=== PATIENT | female | born 1975 | race Caucasian/White ===

== ENCOUNTER 2016-08-29 17:09 | Inpatient (IN) | payer BC ==
[2016-08-29] MEDS ORDERED: LORazepam 2 MG/ML SYRINGE IV PRN (17:55)
[2016-08-29] MEDS ORDERED: ONDANSETRON 4 MG/2 ML VIAL IVP PRN (17:55)
[2016-08-29] MEDS ORDERED: NALOXONE 0.4 MG/ML 1 ML VIAL IV PRN (17:55)
[2016-08-29 18:19] VITALS: BMI 46.7
[2016-08-29] MEDS: SODIUM CHLORIDE 0.9% 2,000 ML IV ONE ×2 (18:44→20:14)
[2016-08-29 18:57] LABS: Basophils % (A) 0 %; CH 28.5; CHCM 32.9; Eosinophils # (A) 0.1 k/uL (0-0.7); Eosinophils % (A) 1 %; HCT 39.2 % (34.0-46.0); HDW 2.78; HGB 12.5 gm/dL (11.4-16.0); Luc # (Auto) 0.11; Luc % (Auto) 2; Lymphocytes % (A) 31 %; MCH 27.8 pg (25.0-35.0); MCHC 31.9 g/dL (31.0-37.0); Mean Platelet Volume 7.9; Monocytes # (A) 0.2 k/uL (0-1.0); Monocytes % (A) 4 %; Neutrophils % (A) 63 %; RBC 4.51 m/uL (3.80-5.40); RDW 14.3 % (11.5-15.5); WBC 6.4 k/uL (3.8-10.6); WBC (Perox) 6.79
[2016-08-29 19:07] LABS: ALT 47 U/L (9-52); AST 28 U/L (14-36); Alkaline Phosphatase 90 U/L (38-126); Amylase 37 U/L (30-110); Anion Gap 14 mmol/L; Blood Urea Nitrogen 17 mg/dL (7-17); Calcium 8.9 mg/dL (8.4-10.2); Carbon Dioxide 21 mmol/L (22-30); Chloride 107 mmol/L (98-107); Glucose 95 mg/dL (74-99); Magnesium 2.2 mg/dL (1.6-2.3); Non-African American GFR(MDRD) >60 (>60 ml/min/1.73 sqM); Phosphorous 3.2 mg/dL (2.5-4.5); Potassium 3.7 mmol/L (3.5-5.1); Sodium 142 mmol/L (137-145); Total Bilirubin 1.5 mg/dL (0.2-1.3); Total Protein 7.4 g/dL (6.3-8.2)
[2016-08-30] MEDS: HYDROmorphone 1 MG/ML 1 ML SYRINGE IV PRN (01:35)
[2016-08-30] MEDS: SODIUM CHLORIDE 0.9% 1,000 ML IV SCH ×3 (01:37→19:50)
[2016-08-30 07:18] LABS: Basophils % (A) 0 %; CH 27.8; Eosinophils % (A) 1 %; HCT 36.3 % (34.0-46.0); HDW 2.94; HGB 12.1 gm/dL (11.4-16.0); Luc # (Auto) 0.15; Luc % (Auto) 3; Lymphocytes # (A) 1.6 k/uL (1.0-4.8); Lymphocytes % (A) 36 %; MCH 28.3 pg (25.0-35.0); MCHC 33.4 g/dL (31.0-37.0); MCV 84.7 fL (80.0-100.0); Mean Platelet Volume 7.7; Monocytes # (A) 0.2 k/uL (0-1.0); Monocytes % (A) 5 %; Neutrophils # (A) 2.4 k/uL (1.3-7.7); Neutrophils % (A) 54 %; RBC 4.28 m/uL (3.80-5.40); WBC 4.3 k/uL (3.8-10.6); WBC (Perox) 4.56
[2016-08-30 07:31] LABS: ALT 46 U/L (9-52); AST 23 U/L (14-36); Alkaline Phosphatase 81 U/L (38-126); Anion Gap 9 mmol/L; Blood Urea Nitrogen 9 mg/dL (7-17); Carbon Dioxide 21 mmol/L (22-30); Chloride 109 mmol/L (98-107); Glucose 97 mg/dL (74-99); Magnesium 2.1 mg/dL (1.6-2.3); Non-African American GFR(MDRD) >60 (>60 ml/min/1.73 sqM); Potassium 3.8 mmol/L (3.5-5.1); Sodium 139 mmol/L (137-145); Total Bilirubin 1.5 mg/dL (0.2-1.3); Total Protein 6.3 g/dL (6.3-8.2)
[2016-08-30] MEDS: ENOXAPARIN 40 MG/0.4 ML SYRINGE SQ SCH (09:00)
[2016-08-30] MEDS: LOSARTAN 50 MG TAB PO SCH (20:59)
--- NOTE | 2016-08-30 21:34 | P.PN ---
Progress Note - Text Patient presented to the bariatric Center with acute gastric slippage. Recommend laparoscopic removal of adjustable gastric band.
[2016-08-31] MEDS: SODIUM CHLORIDE 0.9% 1,000 ML IV SCH ×3 (02:00→17:54)
[2016-08-31] MEDS ORDERED: SCOPOLAMINE 1.5MG/72HR PATCH TRANSDERM ONE (05:25)
[2016-08-31] MEDS ORDERED: HYDROmorphone 1 MG/ML 1 ML SYRINGE IVP PRN (05:25)
[2016-08-31] MEDS ORDERED: DEXAMETHASONE SOD PHOSPHATE 10 MG/ML 1 ML VIAL IV ONE (05:25)
[2016-08-31] MEDS ORDERED: ONDANSETRON 4 MG/2 ML VIAL IVP ONE (05:25)
[2016-08-31] MEDS ORDERED: ACETAMINOPHEN IV (For NPO) 1,000 MG in EMPTY BAG 1 BAG IVPB ONE ×2 (08:00→13:45)
[2016-08-31] MEDS ORDERED: ceFAZolin 3 GM in SODIUM CHLORIDE 0.9% 100 ML IVPB ONE (08:00)
[2016-08-31] MEDS: LACTATED RINGERS 1,000 ML IV SCH (08:35)
[2016-08-31] MEDS ORDERED: LIDOCAINE 1% 20 ML VIAL (10MG/ML) FOR IV START INTRADERMA ONE (08:35)
[2016-08-31] MEDS: ENOXAPARIN 40 MG/0.4 ML SYRINGE SQ SCH (09:01)
--- NOTE | 2016-08-31 09:08 | P.GSHP ---
History of Present Illness H&P Date: 08/29/16 CHIEF COMPLAINT: Abdominal pain with intractable nausea and vomiting with history of an adjustable gastric band HISTORY OF PRESENT ILLNESS: The patient is a 40-year-old female with previous history of adjustable gastric band several years ago. She reports this morning having intractable nausea and vomiting including dysphagia. She presented to the bariatric center. All fluid was discontinued from her band. She had an upper GI demonstrating acute slippage of her adjustable gastric band. She still reported abdominal pain. Patient was admitted as a result to undergo urgent laparoscopic band removal. PAST MEDICAL HISTORY: Please see list. PAST SURGICAL HISTORY: Please see list. MEDICATIONS: Please see list. ALLERGIES: Please see list. SOCIAL HISTORY: No illicit drug use FAMILY HISTORY: No reports of Crohn disease or ulcerative colitis. REVIEW OF ORGAN SYSTEMS: CONSTITUTIONAL: Denies any fever or chills. No significant weight loss from adjustable gastric band. HEENT: Denies any trouble with vision, hearing or nosebleeds. No difficulty swallowing. LYMPHATIC: The patient denies any lumps and bumps around the neck. ENDOCRINE: Denies any thyroid disorders. Denies any blood sugar glucose intolerance. RESPIRATORY: Denies pneumonia. Denies any troubles with breathing or dyspnea on exertion. CARDIOVASCULAR: Denies any chest pain, palpitations, or recent heart attacks. GASTROINTESTINAL: The onset heartburn with intractable nausea and vomiting. GENITOURINARY: Denies any blood in urine or increased urinary frequency. MUSCULOSKELETAL: Has back pain, stiffness, joint arthritis. NEUROLOGIC: Denies any numbness or tingling along the distal extremities. No seizure disorders or headaches. PSYCHIATRIC: Denies depression or suidical ideation. HEMATOLOGIC: Denies any abnormal bleeding or bruising. BREASTS: Denies any breast lumps, pain or nipple discharge. PHYSICAL EXAM: VITAL SIGNS: Stable GENERAL: Well-developed and in mild distress. HEENT: No scleral icterus. Extraocular movements grossly intact. Moist buccal mucosa. NECK: Supple without lymphadenopathy. CHEST: Unlabored respirations. Equal bilateral excursions. CARDIOVASCULAR: Regular rate and rhythm. Distal 2+ pulses. ABDOMEN: Protuberant, soft, tenderness along the epigastrium. MUSCULOSKELETAL: No clubbing, cyanosis, or edema. ASSESSMENT: 1. Acute gastric band slippage. 2. Intractable nausea and vomiting. 3. Epigastric abdominal pain. 4. Dehydration. 5. Morbid obesity due to excess calories. 6. BMI 46.7. PLAN: 1. Immediate admission anticipated inpatient hospitalization over 2 nights. 2. DVT prophylaxis. 3. Antibiotic prophylaxis. 4. Laparoscopic removal of adjustable gastric band and all components were described. 5. IV fluid hydration. Past Medical History Past Medical History: Hypertension History of Any Multi-Drug Resistant Organisms: None Reported Past Surgical History: Bariatric Surgery, Section, Cholecystectomy Additional Past Surgical History / Comment(s): lap band Past Anesthesia/Blood Transfusion Reactions: No Reported Reaction Past Psychological History: No Psychological Hx Reported Smoking Status: Never smoker Additional Past Alcohol Use History / Comment(s): Occational, 1-2/ week Medications and Allergies Home Medications Medication Instructions Recorded Confirmed Type Losartan Potassium [Cozaar] 100 mg PO HS 08/29/16 08/29/16 History Multivitamins, Thera [Multivitamin 1 tab PO DAILY 08/29/16 08/29/16 History (formulary)] Allergies Allergy/AdvReac Type Severity Reaction Status Date / Time naproxen [From Aleve] Allergy Swelling Verified 08/29/16 18:15 Surgical - Exam Vital Signs Temp Pulse Resp BP Pulse Ox 98.4 F 92 16 143/98 97 08/29/16 17:33 08/29/16 17:33 08/29/16 17:33 08/29/16 17:33 08/29/16 17:33 Results - Labs 08/30/16 06:39 08/30/16 06:39 Abnormal Lab Results - Last 24 Hours (Table) 08/30/16 Range/Units 06:39 Chloride 109 H (98-107) mmol/L Carbon Dioxide 21 L (22-30) mmol/L Creatinine 0.50 L (0.52-1.04) mg/dL Calcium 8.0 L (8.4-10.2) mg/dL Total Bilirubin 1.5 H (0.2-1.3) mg/dL Albumin 3.3 L (3.5-5.0) g/dL Diabetes panel 08/30/16 Range/Units 06:39 Sodium 139 (137-145) mmol/L Potassium 3.8 (3.5-5.1) mmol/L Chloride 109 H (98-107) mmol/L Carbon Dioxide 21 L (22-30) mmol/L BUN 9 (7-17) mg/dL Creatinine 0.50 L (0.52-1.04) mg/dL Glucose 97 (74-99) mg/dL Calcium 8.0 L (8.4-10.2) mg/dL AST 23 (14-36) U/L ALT 46 (9-52) U/L Alkaline Phosphatase 81 (38-126) U/L Total Protein 6.3 (6.3-8.2) g/dL Albumin 3.3 L (3.5-5.0) g/dL Calcium panel 08/30/16 Range/Units 06:39 Calcium 8.0 L (8.4-10.2) mg/dL Phosphorus 3.0 (2.5-4.5) mg/dL Albumin 3.3 L (3.5-5.0) g/dL Pituitary panel 08/30/16 Range/Units 06:39 Sodium 139 (137-145) mmol/L Potassium 3.8 (3.5-5.1) mmol/L Chloride 109 H (98-107) mmol/L Carbon Dioxide 21 L (22-30) mmol/L BUN 9 (7-17) mg/dL Creatinine 0.50 L (0.52-1.04) mg/dL Glucose 97 (74-99) mg/dL Calcium 8.0 L (8.4-10.2) mg/dL Adrenal panel 08/30/16 Range/Units 06:39 Sodium 139 (137-145) mmol/L Potassium 3.8 (3.5-5.1) mmol/L Chloride 109 H (98-107) mmol/L Carbon Dioxide 21 L (22-30) mmol/L BUN 9 (7-17) mg/dL Creatinine 0.50 L (0.52-1.04) mg/dL Glucose 97 (74-99) mg/dL Calcium 8.0 L (8.4-10.2) mg/dL Total Bilirubin 1.5 H (0.2-1.3) mg/dL AST 23 (14-36) U/L ALT 46 (9-52) U/L Alkaline Phosphatase 81 (38-126) U/L Total Protein 6.3 (6.3-8.2) g/dL Albumin 3.3 L (3.5-5.0) g/dL
--- NOTE | 2016-08-31 09:09 | P.PN ---
Progress Note - Text Patient seen and evaluated. She still complains of epigastric abdominal pain and difficulty with swallowing. We'll proceed with removal of adjustable gastric band and all components.
--- NOTE | 2016-08-31 09:10 | P.HPADDEND ---
H&P Addendum H&P Addendum Date: 08/31/16 Patient still complains of epigastric abdominal pain with difficulty swallowing. We'll proceed with removal of adjustable gastric band and all components.
[2016-08-31] MEDS ORDERED: PROPOFOL 10 MG/ML 20 ML VIAL IV ONE (11:49)
[2016-08-31] MEDS ORDERED: ROCURONIUM BROMIDE 10 MG/ML 10 ML VIAL IV ONE (11:49)
[2016-08-31] MEDS ORDERED: fentaNYL (PF) 50 MCG/ML 2 ML AMP ONE (11:49)
[2016-08-31] MEDS ORDERED: SUCCINYLCHOLINE CHLORIDE 100 MG/5 ML SYR IV ONE (11:49)
[2016-08-31] MEDS ORDERED: NEOSTIGMINE 1 MG/ML 10 ML VIAL ONE (11:49)
[2016-08-31] MEDS ORDERED: HYDROmorphone (PF) 1 MG/ML ONE (11:49)
[2016-08-31] MEDS ORDERED: MIDAZOLAM 2 MG/2 ML VIAL ONE (11:49)
[2016-08-31] MEDS ORDERED: GLYCOPYRROLATE 0.2 MG/ML 2 ML VIAL ONE (11:49)
[2016-08-31] MEDS ORDERED: LIDOCAINE 1% INJ 10MG/ML (20 ML MDV) ONE (11:49)
[2016-08-31] MEDS ORDERED: PHENYLEPHRINE-0.9% NACL SYG 1 MG/10 ML SYRINGE ONE (11:49)
[2016-08-31] MEDS ORDERED: BUPIVACAIN-EPI 0.5%-1:200,000 30 ML VIAL SQ ONE ×2 (12:28)
[2016-08-31] MEDS ORDERED: LACTATED RINGERS 1,000 ML IV ONE (12:46)
[2016-08-31] MEDS ORDERED: HYDROcodone/APAP 5-325MG 1 EACH TAB PO PRN (13:26)
--- NOTE | 2016-08-31 13:26 | P.PCN ---
Date of Procedure: 08/31/16 Preoperative Diagnosis: Acute gastric band slippage, intractable nausea and vomiting, epigastric abdominal pain, morbid obesity, BMI 46.7 Postoperative Diagnosis: Same Procedure(s) Performed: Laparoscopic removal adjustable gastric band and all components, intraoperative esophagogastro duodenoscopy Implants: Anesthesia: GETA, local (60) Surgeon: Shabana Costa Estimated Blood Loss (ml): 20 Pathology: other (Gastric band including port and all components) Condition: stable Disposition: floor Indications for Procedure: Operative Findings: 1. Acute gastric slippage of adjustable gastric band. 2. No full-thickness gastrotomy identified. 3. Moderate bile over 500 mL aspirated from the stomach. 4. Shelly drain placed along deep subcutaneous tissue port site. Description of Procedure:
[2016-08-31] MEDS ORDERED: SCOPOLAMINE 1.5MG/72HR PATCH TRANSDERM STA (17:24)
--- NOTE | 2016-08-31 17:24 | P.PN ---
Progress Note - Text Patient reports still chest pressure especially as she had drank through a straw. She reports nausea. Recommend overnight observation including antispasmodic for her esophagus. Patient may be discharged home in the morning. Follow-up with the bariatric center in 48 to 72 hours.
[2016-08-31] MEDS ORDERED: DEXAMETHASONE SOD PHOSPHATE 10 MG/ML 1 ML VIAL IV STA (17:25)
[2016-08-31] MEDS: HYOSCYAMINE ORAL DROPS 1.875 MG/15 ML BOTTLE PO SCH ×2 (17:54→21:02)
[2016-08-31] MEDS: SIMETHICONE 40 MG/0.6 ML DROPS 2,000 MG/30 ML BOTTLE PO SCH ×2 (17:55→23:01)
[2016-08-31] MEDS: LOSARTAN 50 MG TAB PO SCH (21:03)
[2016-08-31] MEDS: HYDROmorphone 1 MG/ML 1 ML SYRINGE IV PRN (21:04)
[2016-09-01] MEDS: HYOSCYAMINE ORAL DROPS 1.875 MG/15 ML BOTTLE PO SCH ×3 (01:07→09:04)
[2016-09-01] MEDS: SODIUM CHLORIDE 0.9% 1,000 ML IV SCH (04:13)
[2016-09-01] MEDS: LACTATED RINGERS 1,000 ML IV SCH (05:25)
[2016-09-01 08:06] VITALS: BP 118/67; PULSE 62; RESP 14; TEMP 96.9
[2016-09-01] MEDS: ENOXAPARIN 40 MG/0.4 ML SYRINGE SQ SCH (09:03)
[2016-09-01] MEDS: SIMETHICONE 40 MG/0.6 ML DROPS 2,000 MG/30 ML BOTTLE PO SCH (09:04)
--- NOTE | 2016-09-10 09:38 | P.PN ---
Subjective Principal diagnosis: Abdominal pain The patient is a 40-year-old female who presents with acute abdominal pain including intractable nausea and vomiting. Diagnostic studies are consistent with acute gastric slippage of her gastric band. Despite removal of fluid from her band, she still complains of abdominal pain. Objective - Vital Signs Vital signs: Vital Signs Temp 98.0 F 08/30/16 20:42 Pulse 80 08/30/16 20:42 Resp 16 08/30/16 20:42 BP 146/84 08/30/16 20:42 Pulse Ox 95 08/30/16 20:42 Intake & Output 08/30/16 08/30/16 08/31/16 06:59 18:59 06:59 Intake Total 2800 900 Balance 2800 900 Weight 123.377 kg Intake: Intake, IV Titration 2800 500 Amount Sodium Chloride 0.9% 1, 800 500 000 ml @ 100 mls/hr IV . Q10H SHALINI Rx#:[id number] Sodium Chloride 0.9% 2, 2000 000 ml @ 999 mls/hr IV . Q2H1M ONE Rx#:[id number] Oral 400 Other: # Voids 1 3 - Exam GENERAL: Well developed and in no acute distress. HEENT: No sclera icterus. Extraocular movements grossly intact. Moist buccal mucosa. Head is atraumatic, normocephalic. Hears conversational speech. No nasal drainage. NECK: Supple without lymphadenopathy. No JV distention. CHEST: Non-labored respirations and equal bilateral excursions. CARDIOVASCULAR: Regular rate and rhythm. Palpable 2+ radial pulses. ABDOMEN: Soft. Nondistended. Mild tenderness along the epigastrium. No peritoneal signs. MUSCULOSKELETAL: No clubbing, cyanosis or edema. NEUROLOGIC: No focal or lateralizing signs. PSYCH: Appropriate affect. Alert and oriented to person, place and time. - Labs CBC & Chem 7: 08/30/16 06:39 08/30/16 06:39 Labs: Abnormal Lab Results - Last 24 Hours (Table) 08/30/16 Range/Units 06:39 Chloride 109 H (98-107) mmol/L Carbon Dioxide 21 L (22-30) mmol/L Creatinine 0.50 L (0.52-1.04) mg/dL Calcium 8.0 L (8.4-10.2) mg/dL Total Bilirubin 1.5 H (0.2-1.3) mg/dL Albumin 3.3 L (3.5-5.0) g/dL Assessment and Plan (1) Morbid obesity due to excess calories Status: Acute (2) Body mass index (BMI) of 45.0 to 49.9 in adult Status: Acute (3) History of bariatric surgery Status: Acute (4) Other complications of gastric band procedure Status: Acute (5) Hypertension Status: Acute (6) Intractable nausea and vomiting Status: Acute (7) Epigastric abdominal pain Status: Acute (8) Gastric band slippage Status: Acute Plan: 1. She still reports abdominal pain. We'll continue with IV fluid hydration. 2. Recommend liquids only. 3. GI Prophylaxis. 4. DVT prophyaxis. 5. Will proceed with removal of adjustable gastric band and all components.
--- NOTE | 2016-09-10 09:56 | P.OP ---
Date of Procedure: 08/31/16 Preoperative Diagnosis: Postoperative Diagnosis: Procedure(s) Performed: Implants: Indications for Procedure: Operative Findings: Description of Procedure: SURGEON: MARIA DEL CARMEN STEVEN MD PANEL MAKER: NONE. PREOPERATIVE DIAGNOSES: 1. Morbid obesity due to excess calories. 2. Body mass index 46.7. 3. Complications of adjustable gastric band. 4. Epigastric abdominal pain. 5. essential hypertension. 6. Gastroesophageal reflux disease. 7. Dysphagia due to solid foods. 8. Nausea and vomiting. 9. Dehydration. 10. Acute gastric band slippage. POSTOPERATIVE DIAGNOSES: PREOPERATIVE DIAGNOSES: 1. Morbid obesity due to excess calories. 2. Body mass index 46.7. 3. Complications of adjustable gastric band. 4. Epigastric abdominal pain. 5. essential hypertension. 6. Gastroesophageal reflux disease. 7. Dysphagia due to solid foods. 8. Nausea and vomiting. 9. Dehydration. 10. Acute gastric band slippage. OPERATION: 1. Laparoscopic removal of adjustable gastric band and all components. 2. Intraoperative esophagogastroduodenoscopy. ANESTHESIA: General with 60 mL 0.25% Sensorcaine with epinephrine. ESTIMATED BLOOD LOSS: 20 mL SPECIMENS REMOVED: Adjustable gastric band and components, including fibrotic tissue. COMPLICATIONS: None. FINDINGS: 1. Acute gastric slippage of adjustable gastric band. 2. No full-thickness gastrotomy identified. 3. Moderate bile over 500 mL aspirated from the stomach. 4. Friendship drain placed along deep subcutaneous tissue port site. INDICATIONS: The patient is a 40-year-old female who presents with prior history of adjustable gastric band. She presented with acute intractable nausea and vomiting including epigastric abdominal pain and dysphagia to solid foods. Despite removal of fluid from her band, she had persistent symptoms. Surgical options were described. As she has persistent pain and discomfort from her band, removal of the adjustable gastric band and port including all components were reviewed. Benefits and risks of the procedure were described. Informed consent was obtained. DESCRIPTION: The patient was brought into the operating room and laid in supine position. Chemical DVT prophylaxis were given as well as bilateral SCDs. Patient was brought into the operating room, transferred a split-leg table. After general induction, which was uncomplicated, the abdomen was prepped and draped in standard sterile fashion. The abdomen was prepped and draped in standard sterile fashion using ChloraPrep as well as Ioban draping. Prior to incision, a timeout protocol was confirmed with the surgical team regarding patient's name, procedure to be performed, including preoperative medications. A transverse incision was made approximately 15 cm distal to the xiphoid off to the left of the midline. A 0 degree 5 mm trocar entry was performed and entered into the peritoneal cavity. The abdomen was insufflated to 15 mmHg pressure, which she tolerated well. Diagnostic laparoscopy demonstrated no hepatomegaly or fatty liver disease. The port was palpated at the lateral left costal margin and the band was found underneath the liver. A 15 mm port was placed along the left costal margin. Next a 5 mm port was placed at the left midclavicular line. The patient was placed in steep reverse Trendelenburg position. The port was followed with its tubing to the actual band. The gastrohepatic ligament was actually scarred from her prior surgery. Acute gastric slippage of her ALLERGAN band was confirmed. Using electro-Bovie cautery, the cicatrix of the band was incised. The band was then freed. The band buckle was cut. The tubing was cut approximately 5 cm distal to the actual adapter. The band was removed in two pieces without injury to the stomach. Hemostasis was excellent. The band was removed from the abdominal cavity via the 15 mm port. Next, attention was brought to the abdominal wall where the lap band port was palpated. Skin was localized with anesthetic. A transverse incision was made over the port using a #11 blade. Electro-Boviecautery was used to enter the capsule around the port. The sutures were cut and the port was removed in total along with the tubing. Diagnostic laparoscopy demonstrated complete removal of all foreign body. I then went to the head of the bed to perform intraoperative esophagogastroduodenoscopy to evaluate for any full thickness injury to the stomach. An Olympus gastroscope was passed from the posterior oropharynx down to the esophagus, where the squamocolumnar junction was found LA grade B erosive esophagitis, chronic changes. The stomach was entered and moderate bile reflux was found. Over 500 mL of bile was suctioned from the stomach. Chronic gastritis was found along the antrum without gastric ulcers or duodenitis or duodenal ulcers. Retroflexion of the scope confirmed a Hill grade 2 lower esophageal valve. No full-thickness erosion from the prior band was encountered. No blood was found within the stomach. The stomach was desufflated. The patient tolerated the procedure well. Again, no evidence of leak was encountered from the removal of the band. Along the left upper quadrant 15 mm port site, Kendall Humphrey 0 Vicryl sutures were used to close the fascia. I then went back to the patient's bedside after re-scrubbing. All instruments and pneumoperitoneum were evacuated from the abdominal cavity. The port extraction site was hemostatic. The port site was irrigated using normal saline and hydrogen peroxide approximately, 50 mL. The skin was closed in layers using 0-Vicryl for the deep dermis and subcutaneous tissue. A Friendship drain, quarter inch was placed in the subcutaneous tissue to minimize risks of postoperative seroma.The rest of the incisions were reapproximated using 4-0 Monocryl in a subcuticular interrupted fashion. Optifoam dressing was placed over the port extraction site and along the left upper quadrant to decrease risk for surgical site infection. At the end of the procedure, needle, sponge and instrument count was verified correct by the surgical services tech. The patient had tolerated the procedure well. An abdominal binder was placed. The patient was transferred to Postanesthesia Care Unit in stable condition. Postoperative findings were discussed with the patient's family who were pleased with the level of care.
--- NOTE | 2016-09-10 10:00 | P.DS ---
Providers Date of admission: 08/29/16 17:13 Expected date of discharge: 09/01/16 Attending physician: Shabana Costa Primary care physician: Stated None - Discharge Diagnosis(es) (1) Morbid obesity due to excess calories Status: Acute (2) Body mass index (BMI) of 45.0 to 49.9 in adult Status: Acute (3) History of bariatric surgery Status: Acute (4) Other complications of gastric band procedure Status: Acute (5) Hypertension Status: Acute (6) Intractable nausea and vomiting Status: Acute (7) Epigastric abdominal pain Status: Acute (8) Gastric band slippage Status: Acute Hospital Course: The patient is a 40-year-old female who emergently presented to the bariatric center with intractable nausea and vomiting including epigastric abdominal pain and dysphagia. Despite fluid removed from her band, she had persistent symptoms. She was admitted. After IV fluid hydration the patient was brought to the operating room where her adjustable gastric band and all components were removed. Postoperatively, she still complained of mild dysphagia and abdominal pain. Prior to discharge, she was tolerating diet. Her abdominal pain had resolved. Procedures: Laparoscopic removal of adjustable gastric band and all components with intraoperative esophagogastroduodenoscopy, 08/31/16. Patient Condition at Discharge: Stable Plan - Discharge Summary New Discharge Prescriptions: New Ondansetron Odt [Zofran ODT] 4 mg PO Q8HR PRN #10 tab PRN Reason: Nausea And Vomiting Hydrocodone/Acetaminophen [[place] 5-325] 1 - 2 each PO Q6HR PRN #20 tab PRN Reason: Pain Hyoscyamine Oral Drops [Levsin Drops] 0.25 mg PO Q4HR bottle Simethicone 40 mg/0.6 ml Drops [Mylicon Drops] 40 mg PO QID bottle No Action Multivitamins, Thera [Multivitamin (formulary)] 1 tab PO DAILY Losartan Potassium [Cozaar] 100 mg PO HS Discharge Medication List Losartan Potassium [Cozaar] 100 mg PO HS 08/29/16 [History] Multivitamins, Thera [Multivitamin (formulary)] 1 tab PO DAILY 08/29/16 [History ] Hydrocodone/Acetaminophen [[place] 5-325] 1 - 2 each PO Q6HR PRN #20 tab 08/31/16 [Rx] Hyoscyamine Oral Drops [Levsin Drops] 0.25 mg PO Q4HR bottle 08/31/16 [Rx] Ondansetron Odt [Zofran ODT] 4 mg PO Q8HR PRN #10 tab 08/31/16 [Rx] Simethicone 40 mg/0.6 ml Drops [Mylicon Drops] 40 mg PO QID bottle 08/31/16 [Rx ] Follow up Appointment(s)/Referral(s): Shabana Costa MD [STAFF PHYSICIAN] - 09/03/16 4:00 pm (Bariatric center at 4 pm) Patient Instructions/Handouts: Exploratory Laparoscopy (DC), Abdominal Binder ( DC) Activity/Diet/Wound Care/Special Instructions: No lifting over 4 pounds in 4 weeks. May shower. No bath tub soaks. Wear abdominal binder on in all times after showering. Dressing to be discontinued in the office. Discharge Disposition: HOME SELF-CARE
== END 2016-09-01 09:30 | disposition home or self-care (01) | DRG 988 ==
LOC: 3SUR 17:13
PROVIDERS: ADMIT Surgery Plastic and Reconstructive Surgery; ATTEND Surgery Plastic and Reconstructive Surgery
PROC: 0DJ08ZZ Inspection of Upper Intestinal Tract, Via Natural or Artificial Opening Endoscopic (ICD-10-PCS; 2016-08-31)
PROC: 0JPT3WZ Removal of Totally Implantable Vascular Access Device from Trunk Subcutaneous Tissue and Fascia, Percutaneous Approach (ICD-10-PCS; 2016-08-31)
PROC: 0DP64CZ Removal of Extraluminal Device from Stomach, Percutaneous Endoscopic Approach (ICD-10-PCS; principal; 2016-08-31 10:05)
DX: T85.598A Other mechanical complication of other gastrointestinal prosthetic devices, implants and grafts, initial encounter (principal); K95.09 Other complications of gastric band procedure; Z68.42 Body mass index [BMI] 45.0-49.9, adult; E66.01 Morbid (severe) obesity due to excess calories; K22.10 Ulcer of esophagus without bleeding; R13.19 Other dysphagia; I10 Essential (primary) hypertension; K21.9 Gastro-esophageal reflux disease without esophagitis; K29.50 Unspecified chronic gastritis without bleeding; K66.0 Peritoneal adhesions (postprocedural) (postinfection); E86.0 Dehydration; R10.13 Epigastric pain; R07.89 Other chest pain; R11.2 Nausea with vomiting, unspecified; Z88.6 Allergy status to analgesic agent; Z90.49 Acquired absence of other specified parts of digestive tract; Z79.899 Other long term (current) drug therapy; Z98.84 Bariatric surgery status; Y83.1 Surgical operation with implant of artificial internal device as the cause of abnormal reaction of the patient, or of later complication, without mention of misadventure at the time of the procedure
CPT/HCPCS: 80053; 81025; 82150; 83690; 83735; 84100; 85025; 93005

== ENCOUNTER → 2016-08-29 | Outpatient (CLI) | payer BC ==
[2016-08-29 15:23] VITALS: BP 148/105; PULSE 80; RESP 16; TEMP 98.3; BMI 46.8
--- NOTE | 2016-08-30 07:34 | FL ---
EXAMINATION TYPE: FL barium swallow DATE OF EXAM: 08/29/2016 LAP BANDING LIMITED ESOPHAGRAM: CLINICAL HISTORY: Lap band placed 10 years ago with severe dysphasia and inability to eat for one da y, had fill removed earlier today. TECHNIQUE: Limited esophagram is performed utilizing 30 oz of Omnipaque. A total of 37 seconds of fl uoroscopic time was utilized during procedure. COMPARISON: None. FINDINGS: Pre-procedure wool shearer image shows lap band in close proximity to the left hemidiaphragm in proximal stomach just below the gastroesophageal junction. Slightly more vertical angulation is pres ent but the phi angle remains within normal limits . Numerous cholecystectomy clips are seen. The pat ient then drank oral contrast. There is good flow of contrast along the course of the esophagus. The re is mild delay in flow of contrast along the course of the lap band, there is no evidence of contra st extravasation to suggest leak. Patient remains asymptomatic. IMPRESSION: No evidence of lap band slippage or significant obstruction after fill removed.
--- NOTE | 2016-09-12 13:49 | P.PN ---
Progress Note - Text DATE OF CONSULTATION: 08/29/16 REASON FOR CONSULTATION: Complications from gastric band with acute dysphagia. HISTORY OF PRESENT ILLNESS: The patient is a 40-year-old female who presents with a long-standing history of morbid obesity. She had an adjustable gastric band placed 8 years ago, 2008. She admits to poor follow-up since her band placement. She reports walking up this morning and tried to eat. She reports acute pain and troubles with swallowing. She tried drinking water with worsening symptoms. She reports acute epigastric abdominal pain. No reports of previous episodes. She reports this her first trouble with her band. She reports acute nausea and vomiting and inability to maintain any oral intake. Now she presents for evaluation. At her height of 5 foot 4, her ideal body weight is 144 pounds. Today she comes in at 273 pounds. Her highest weight was 280 pounds. Her lowest weight with the band was 235 pounds. She initially lost 45 pounds. She has already regained 38 pounds. She is 129 pounds overweight. PAST MEDICAL HISTORY: 1. Morbid obesity. 2. Hypertension. PAST SURGICAL HISTORY: 1. Adjustable gastric band placement, 2008. 2. Cholecystectomy. 3. . HOME MEDICATIONS: 1. Cozaar. ALLERGIES: Naproxen. SOCIAL HISTORY: No active tobacco use. FAMILY HISTORY: Denies any DVTs, pulmonary embolisms in her family. Denies any ulcerative colitis disease or Crohn's. She does have a family history of morbid obesity. REVIEW OF ORGAN SYSTEMS: CONSTITUTIONAL: At her height of 5 foot 4, her ideal body weight is 144 pounds. Today she comes in at 273 pounds. Her highest weight was 280 pounds. Her lowest weight with the band was 235 pounds. She initially lost 45 pounds. She has already regained 38 pounds. She is 129 pounds overweight. HEENT: Denies any active troubles with vision or hearing. Presents with acute dysphagia. ENDOCRINE: No reports of diabetes or hypothyroidism. CARDIOVASCULAR: No reports of palpitations or heart attacks or chest pain. Has hypertension controlled with 1 blood pressure medication. RESPIRATORY: Has daytime somnolence including snoring, suspicious for sleep apnea. No recent asthma. GI: Denies any bright red blood per rectum, diarrhea or constipation. Has intermittent heartburn. MUSCULOSKELETAL: Describes generalized muscle aches, including lower back pain or joint pain. NEURO: There were no reports of headaches or seizure disorders. PSYCH: Has depression without suicidal ideation. Has anxiety. HEMATOLOGIC: Denies any abnormal bleeding or bruising. PHYSICAL EXAM: VITAL SIGNS: height 5 foot 4 inches, weight 273 pounds. BMI 46.9 Vital Signs Temp 98.3 F 08/29/16 15:10 Pulse 80 08/29/16 15:10 Resp 16 08/29/16 15:10 BP 148/105 08/29/16 15:10 Pulse Ox GENERAL: Well-developed female in mild distress. HEENT: No scleral icterus. Extraocular was grossly intact. No nasal drainage. NECK: Supple without lymphadenopathy. CHEST: Nonlabored respirations with equal bilateral excursions. CARDIOVASCULAR: Regular rate. Distal 2+ pulses. ABDOMEN: Obese, soft, nondistended. Mild tenderness along the epigastrium. MUSCULOSKELETAL: No clubbing, cyanosis, or edema. Gross strength 5/5 distal lower extremities. NEURO: No focal or lateralizing signs. Cranial nerves 2 through 12 grossly within normal limits. PSYCH: Appropriate affect. Alert and oriented to person, place and time. ASSESSMENT: 1. Morbid obesity due to excess calories. 2. Body mass index of 48.2 down to 46.9. 3. Acute complications of adjustable gastric band. 4. Hypertension. 5. Acute dysphagia. 6. History of adjustable gastric band. 7. Epigastric abdominal pain. 8. Acute nausea and vomiting. 9. Dehydration. PLAN: 1. Recommend removal of all fluid from her band for her acute symptoms. 2. Recommend an UGI with esophagram to evaluate band orientation. 3. Symptoms highly suspicious for acute band slippage where urgent removal of her band will be needed. PROCEDURE PERFORMED: Adjustment of gastric band. SURGEON: Shabana Costa MD ANESTHESIA: Lidocaine 1%, 1 mL, without epinephrine. ESTIMATED BLOOD LOSS: None. DESCRIPTION: Patient was laid supine. After verbal consent had been obtained, the skin was cleansed with alcohol swab. The skin was localized with 1% lidocaine, a total of 1 mL. The port was palpated in the left upper quadrant without active erythema. The area was without acute redness or signs of infection. Using a 20-gauge Hull needle, the port was accessed. A total with 2.6 mL of fluid was found in her old generation band. After her procedure, she still reported dysphagia and was sent for an esophogram. Thank you for this consultation. ADDENDUM: Esophogram shows slippage of her adjustable gastric band with acute angle orientation. Recommend admission, hydration and surgical intervention for removal of her band and all components.
== END | disposition home or self-care (01) ==
LOC: BARWHC3 14:44
PROVIDERS: ATTEND Surgery Plastic and Reconstructive Surgery
DX: R13.10 Dysphagia, unspecified (principal); E66.01 Morbid (severe) obesity due to excess calories; I10 Essential (primary) hypertension; E86.0 Dehydration; Z68.42 Body mass index [BMI] 45.0-49.9, adult; Z98.84 Bariatric surgery status; Z79.899 Other long term (current) drug therapy; Z88.6 Allergy status to analgesic agent
CPT/HCPCS: 74220; 99203

== ENCOUNTER → 2016-09-03 | Outpatient (CLI) | payer BC ==
[2016-09-03 17:12] VITALS: BP 151/106; PULSE 83; TEMP 98.1; BMI 47.9
--- NOTE | 2016-09-12 20:46 | P.PN ---
Progress Note - Text DATE OF SERVICE: 09/03/16 REASON FOR CONSULTATION: Complications from gastric band with acute dysphagia. HISTORY OF PRESENT ILLNESS: The patient is a 40-year-old female who is status post removal of adjustable gastric band 08/31/2016 as a result of acute gastric slippage, dysphagia and epigastric abdominal pain. She reports drinking well. No reports of obstructive symptoms. At her height of 5 foot 4, her ideal body weight is 144 pounds. Today she comes in at 278 pounds. He has gained 5 pounds in 4 days. Her highest weight was 280 pounds. She is 135 pounds overweight. PHYSICAL EXAM: VITAL SIGNS: height 5 foot 4 inches, weight 278 pounds. BMI 48.0 Vital Signs Temp 98.1 F 09/03/16 17:04 Pulse 83 09/03/16 17:04 Resp BP 151/106 09/03/16 17:04 Pulse Ox GENERAL: Well-developed female in mild distress. HEENT: No scleral icterus. Extraocular was grossly intact. No nasal drainage. NECK: Supple without lymphadenopathy. CHEST: Nonlabored respirations with equal bilateral excursions. CARDIOVASCULAR: Regular rate. Distal 2+ pulses. ABDOMEN: Obese, soft, nondistended. Dressing along left upper quadrant discontinued. No signs of infection. Abdominal binder placed. Minimal tenderness as suspected from left upper abdomen. MUSCULOSKELETAL: No clubbing, cyanosis, or edema. Gross strength 5/5 distal lower extremities. NEURO: No focal or lateralizing signs. Cranial nerves 2 through 12 grossly within normal limits. PSYCH: Appropriate affect. Alert and oriented to person, place and time. ASSESSMENT: 1. Morbid obesity due to excess calories. 2. Body mass index of 48.2 down to 48.0 3. Acute complications of adjustable gastric band. 4. Hypertension. 5. Acute dysphagia, resolved. 6. History of adjustable gastric band. 7. Epigastric abdominal pain, resolved. 8. Acute nausea and vomiting, resolved. 9. Dehydration, resolved. 10. Status post band removal. PLAN: 1. Continue abdominal binder at all times except for showering. 2. Monitor for abdominal wall seroma. 3. No lifting over 4 pounds in 2 weeks. 4. As she had emergent removal of adjustable gastric band from complications, recommended revision to bariatric procedure once completely recovered.
== END | disposition home or self-care (01) ==
LOC: BARWHC3 15:46
PROVIDERS: ATTEND Surgery Plastic and Reconstructive Surgery
DX: K95.09 Other complications of gastric band procedure (principal); I10 Essential (primary) hypertension; E66.01 Morbid (severe) obesity due to excess calories; Z68.42 Body mass index [BMI] 45.0-49.9, adult; Z98.84 Bariatric surgery status
CPT/HCPCS: 99211

== ENCOUNTER → 2019-04-01 | Outpatient (CLI) | payer BC ==
--- NOTE | 2019-04-02 11:26 | MM ---
Reason for exam: screening (asymptomatic). Baseline mammogram. History: Took hormonal contraceptives beginning at age 15. Physical Findings: Nurse did not find any significant physical abnormalities on exam. MG Screening Mammo w CAD Bilateral CC and MLO view(s) were taken. Finding #1: There are 5 mm equal density (isodense) masses in both breasts, left upper outer quadrant, right upper inner quadrant. Finding #2: There are typically benign calcifications in both breasts. These results were verbally communicated with the patient and result sheet given to the patient on 04/01/19. ASSESSMENT: Incomplete: need additional imaging evaluation, BI-RAD 0 RECOMMENDATION: Ultrasound of both breasts.
--- NOTE | 2019-04-02 11:27 | USB ---
Reason for exam: additional evaluation requested from abnormal screening. History: Took hormonal contraceptives beginning at age 15. Physical Findings: Breast exam preformed at baseline screening. US Breast Limited BILAT Technologist: Alyssa Bhandari Right limited breast ultrasound including focal area of concern, retroareolar and axilla demonstrates a 0.6 x 0.4 x 0.5cm solid calcification at 3 o'clock. Left limited breast ultrasound including focal area of concern, retroareolar and axilla demonstrates a 1.1 x 0.4 x 0.5cm cystic lesion at 3 o'clock. These results were verbally communicated with the patient and result sheet given to the patient on 04/01/19. ASSESSMENT: Probably benign, BI-RAD 3 RECOMMENDATION: Follow-up diagnostic mammogram of both breasts in 6 months.
== END | disposition home or self-care (01) ==
LOC: RADMAMWWP 15:01
PROVIDERS: ATTEND Family Medicine
DX: Z12.31 Encounter for screening mammogram for malignant neoplasm of breast (principal); R92.8 Other abnormal and inconclusive findings on diagnostic imaging of breast
CPT/HCPCS: 77067

== ENCOUNTER → 2021-03-30 | Outpatient (CLI) | payer BC ==
--- NOTE | 2021-03-30 16:00 | US ---
EXAMINATION TYPE: US thyroid st tissue head/neck DATE OF EXAM: 03/30/2021 COMPARISON: NONE CLINICAL HISTORY: I88.8 OTHER NONSPECIFIC LYMPHADENITIS. Cervical lymph nodes felt by patient and ord ering physician. Bilateral neck scanned, right submandibular neck, area of palp shows lymph node measuring 0.7 x 0.4 x 0.7 cm. Left lateral neck, multiple lymph nodes seen at area of palp near Carotid artery and IJV. La rgest seen measures 2.4 x 0.7 x 1.0 cm. IMPRESSION: Lymphadenopathy right neck palpable region.
== END | disposition home or self-care (01) ==
LOC: RADUSWWP 15:27
PROVIDERS: ATTEND Family Medicine
DX: R59.0 Localized enlarged lymph nodes (principal)
CPT/HCPCS: 76536

== ENCOUNTER → 2021-04-24 | Outpatient (CLI) | payer BC ==
--- NOTE | 2021-04-25 09:12 | MM ---
Reason for exam: screening (asymptomatic). Last mammogram was performed 2 years and 1 month ago. History: Took hormonal contraceptives beginning at age 15. Physical Findings: A clinical breast exam by your physician is recommended on an annual basis and results should be correlated with mammographic findings. MG Screening Mammo w CAD Bilateral CC and MLO view(s) were taken. XCCM view(s) were taken of the right breast. Prior study comparison: April 01, 2019, bilateral MG screening mammo w CAD. There are scattered fibroglandular densities. There are benign appearing round calcifications bilaterally. Developing asymmetry right posterior upper outer quadrant measuring 15mm. ASSESSMENT: Incomplete: need additional imaging evaluation, BI-RAD 0 RECOMMENDATION: Special view mammogram of the right breast. If lesion persists on supplemental views, image directed ultrasound is recommended. [facility] will attempt to contact patient to return for supplemental views and ultrasound if indicated.
== END | disposition home or self-care (01) ==
LOC: RADMAMWWP 13:54
PROVIDERS: ATTEND Family Medicine
DX: Z12.31 Encounter for screening mammogram for malignant neoplasm of breast (principal)
CPT/HCPCS: 77067

== ENCOUNTER → 2021-04-25 | Outpatient (CLI) | payer BC ==
--- NOTE | 2021-04-26 09:19 | USB ---
Reason for exam: additional evaluation requested from abnormal screening. History: Took hormonal contraceptives beginning at age 15. US Breast Workup Limited RT Right limited breast ultrasound including focal area of concern, retroareolar and axilla demonstrates a 2.1 x 1.3 x 2.2cm benign lymph node at 10 o'clock, retained fatty hilum. Upper outer quadrant scanned approximately 15cm from nipple per Dr. Adam. These results were verbally communicated with the patient and result sheet given to the patient on 04/25/21. ASSESSMENT: Probably benign, BI-RAD 3 RECOMMENDATION: Follow-up diagnostic mammogram of the right breast in 6 months.
== END | disposition home or self-care (01) ==
LOC: RADUSWWP 14:30
PROVIDERS: ATTEND Family Medicine
DX: R92.8 Other abnormal and inconclusive findings on diagnostic imaging of breast (principal)

== ENCOUNTER → 2021-11-06 | Outpatient (CLI) | payer BC ==
--- NOTE | 2021-11-06 15:25 | MM ---
Reason for Exam: Follow-up at short interval from prior study. Last screening mammogram was performed 6 month(s) ago. Patient History: Menarche at age 10. First Full-Term at age 26. Hormonal Contraceptives, from age 15 until age 28. Last menstrual period: 10/02/2021 Risk Values: Montse 5 year model risk: 1.0%. NCI Lifetime model risk: 10.2%. Prior Study Comparison: 04/01/2019 Bilateral Screening Mammogram, [facility]. 04/24/2021 Bilateral Screening Mammogram, [facility]. 04/25/2021 Right Diagnostic Mammogram, [facility]. Tissue Density: Right: The breast tissue is almost entirely fat. Findings: Analyzed By CAD. Area of concern in the lateral upper breast posterior depth is a similar morphology to prior. No new suspicious masses or secretions or distortions. Overall Assessment: Benign, BI-RAD 2 Management: Screening Mammogram of both breasts in 1 year. Back to screening at patient's regularly scheduled time at in April 2022. A clinical breast exam by your physician is recommended on an annual basis and results should be correlated with mammographic findings. This exam should not preclude additional follow-up of suspicious palpable abnormalities. Results were given to the patient verbally at the time of exam. Electronically signed and approved by: Júnior Gill DO
== END | disposition home or self-care (01) ==
LOC: RADMAMWWP 14:45
PROVIDERS: ATTEND Family Medicine
DX: R92.8 Other abnormal and inconclusive findings on diagnostic imaging of breast (principal)
CPT/HCPCS: 77065

== ENCOUNTER → 2023-05-01 | Outpatient (CLI) | payer BC ==
--- NOTE | 2023-05-01 14:59 | P.SLEEP ---
History of Present Illness DATE: 05/01/2023 CONSULTATION/NEW PATIENT EVALUATION HISTORY OF PRESENT ILLNESS/SLEEP-WAKE EVALUATION: 47-year-old lady had been e valuated in the sleep center for possible obstructive sleep apnea hypopnea syndrome. SLEEP SCHEDULE: Usually sleep schedule well 9 PM to 4:30 AM on weekdays and from 9 PM to 7 AM on weekend. FALLING ASLEEP: No problems with falling asleep. DURING SLEEP: Patient has loud snoring and awakenings from sleep with feeling of choking. Positive history of nocturia times during the night. No history of hypnogogical hallucinations, sleep paralysis, or cataplexy. DURING THE DAY/WAKE STATE: Patient may fill sleepiness during the day. Roosevelt sleepiness scale is increased to 13. Usually patient doesn't take naps. PAST MEDICAL HISTORY: Hypertension. PAST SURGICAL HISTORY: Lap band surgery. MEDICATIONS: Telmisartan 80 mg once a day, amlodipine 10 mg once a day. SOCIAL HISTORY: Negative for smoking, alcohol consumption occasional. FAMILY HISTORY: Hypertension, sleep apnea, headaches. REVIEW OF SYSTEMS: Loud snoring, multiple awakenings from sleep, sleepiness during the day. No fevers. No double vision. No recent chest pain. No shortness of breath. No abdominal pain. No bleeding episodes. No blood in urine. No seizure episodes. PHYSICAL EXAMINATION: GENERAL: A pleasant patient without any distress. VITAL SIGNS: BP 123/82 , HR 102 , RR 16 , weight 300.4 pounds, height 5 foot 3-1/4 inches, body mass index 53.3 . HEENT: PERRLA, EOMI. Evaluation of oropharynx showed tongue protrudes midline, low position of soft palate Mallampati 4. NECK: Supple. No JVD. Thyroid is not palpable. 16.5 inches in circumference. LUNGS: Clear to percussion and to auscultation. Good air exchange. No wheezing or rhonchi. HEART: S1, S2 regular. No murmurs, gallops or rubs. ABDOMEN: Soft and nontender. Bowel sounds are present. No organomegaly appreciated. Obese EXTREMITIES: No clubbing or cyanosis. COREROOM FOUNDRY LABORER: Awake, alert, and oriented x3. Cranial nerves 2 to 7 intact. There is no fasciculation or atrophy noted. No focal deficits observed. ASSESSMENT: 1. Loud snoring, awakenings from sleep with choking, extremely low position of soft palate Mallampati 4, wide neck 16.5 inches in circumference, sleepiness Roosevelt Sleepiness Scale increased to 13. Obstructive sleep apnea-hypopnea syndrome. 2. Morbid obesity, BMI 53.3, possible obesity hypoventilation. 3. Hypertension. 4. Status post lap band surgery. 5 status post cholecystectomy. 6 . Status post . PLAN: 1. Polysomnography for evaluation of patient's breathing during sleep. 2. CPAP/BiPAP titration if sleep study confirms obstructive sleep apnea- hypopnea syndrome. 3. Preferable position during sleep on the side. 4. No driving if patient feels any sleepiness. Patient is aware of civil and criminal liability for unsafe driving. 5. Sleep hygiene with regular sleep time for at least 7.5-8 hours. 6. Watching and losing weight. Thank you very much for referring this patient for consultation. Sincerely, Barry Hoff MD, PhD, FAASM. Diplomat of [place] [employer], Sleep Medicine Board by [place] [employer] [place] [employer] Kaiako Kura [place] of [facility] [place] Past Medical History Past Medical History: Hypertension History of Any Multi-Drug Resistant Organisms: None Reported Past Surgical History: Bariatric Surgery, Section, Cholecystectomy Additional Past Surgical History / Comment(s): lap band 09-01-16 lap band removed Past Anesthesia/Blood Transfusion Reactions: No Reported Reaction Past Psychological History: No Psychological Hx Reported Medications and Allergies Home Medications Medication Instructions Recorded Confirmed Type Losartan Potassium [Cozaar] 100 mg PO HS 08/29/16 08/29/16 History Multivitamins, Thera [Multivitamin 1 tab PO DAILY 08/29/16 08/29/16 History (formulary)] Hydrocodone/Acetaminophen [Luverne 1 - 2 each PO Q6HR PRN #20 tab 08/31/16 Rx 5-325] Hyoscyamine Oral Drops [Levsin 0.25 mg PO Q4HR bottle 08/31/16 Rx Drops] Ondansetron Odt [Zofran ODT] 4 mg PO Q8HR PRN #10 tab 08/31/16 Rx Simethicone 40 mg/0.6 ml Drops 40 mg PO QID bottle 08/31/16 Rx [Mylicon Drops] Allergies Allergy/AdvReac Type Severity Reaction Status Date / Time naproxen [From Aleve] Allergy Swelling Verified 08/29/16 18:15 Sleep Note - Sleep Note Sleep Note: Temperature: Pulse Rate: Respiratory Rate: Blood Pressure: SpO2: Height: Weight: BMI: Neck Circumference:
== END ==
LOC: 3 N SLEEP 14:16
PROVIDERS: ATTEND Internal Medicine
DX: G47.33 Obstructive sleep apnea (adult) (pediatric) (principal); E66.01 Morbid (severe) obesity due to excess calories; R06.83 Snoring; Z90.49 Acquired absence of other specified parts of digestive tract; Z99.89 Dependence on other enabling machines and devices; Z68.43 Body mass index [BMI] 50.0-59.9, adult; Z88.5 Allergy status to narcotic agent
CPT/HCPCS: 99211

== ENCOUNTER 2023-05-29 19:32 | Outpatient (CLI) | payer BC ==
--- NOTE | 2023-05-30 10:32 | P.PCN ---
Description of Procedure: POLYSOMNOGRAPHY REPORT PROCEDURE(S)/DATE(S): Polysomnography 05/29/2023 CLINICAL: Patient has been seen in the sleep center for evaluation of obstructive sleep apnea-hypopnea syndrome. Please see my consultation. Sleep study has been done for evaluation of patient breathing during the sleep. PROCEDURE: The standard montage for clinical polysomnography included the electroencephalogram, the electrooculogram, the mentalis surface electromyography and Lead II cardiography. The respiratory battery consisted of measurements of nasal/buccal air flow, pressure transducer measurements from nose, thoracic and/or abdominal effort and intercostal surface electromyography. Video monitoring has been done to check for any parasomnia events. Nocturnal oxyhemoglobin saturations were obtained by finger oximetry. Step-gonzalez titration with positive airway pressure was utilized to control the respiratory events, if necessary. RESULTS: During the diagnostic sleep study sleep efficiency was decreased to 67.6%. Latency to sleep onset was prolonged to 30.5 min. Sleep architecture showed stage NI slightly increased to 11.3%, Delta sleep was practically absent 0.2%, REM sleep was significantly decreased to 7.8%. Respiratory channel showed 0 obstructive apneas, 0 mixed apneas, 0 central apneas, 110 hypopneas with lowest oxygen level 79%. Total apnea hypopnea index was 21.9. Heart rate was in the range between 73 and 87, average 79. EMG showed 46.3 periodic limb movements per hour with 0 micro-arousals per hour. IMPRESSIONS: 1. Moderate obstructive sleep apnea hypopnea syndrome. 2. Significant periodic limb movements have been documented. Please see other impressions from consultation PLAN: 1. The patient will have PAP titration for correction of respiratory abnormalities during the sleep. 2. Losing weight program. 3. Sleep hygiene with regular time in bed for at least 7-1/2 hours. 4. No driving if feeling sleepiness. 5. Please check iron profile including ferritin level. Low level of iron may increase the risk for periodic limb movements. Thank you very much for allowing me to participate in the management of your patient. Sincerely, Barry Hoff MD, PhD, FAASM. Diplomat of [place] [employer], Sleep Medicine Board by [place] [employer] [place] Board Member of [facility] [place]
== END 2023-05-30 05:25 | disposition home or self-care (01) ==
LOC: 3 N SLEEP 19:32
PROVIDERS: ATTEND Internal Medicine
DX: G47.33 Obstructive sleep apnea (adult) (pediatric) (principal); G47.61 Periodic limb movement disorder; Z88.5 Allergy status to narcotic agent
CPT/HCPCS: 95810

== ENCOUNTER 2023-07-16 19:39 | Outpatient (CLI) | payer BC ==
--- NOTE | 2023-07-17 14:38 | P.PCN ---
Description of Procedure: CLINICAL: Titration with positive air pressure has been done for correction of respiratory abnormalities during sleep. DESCRIPTION OF PROCEDURE: The standard montage for clinical polysomnography included the electroencephalogram, the electrocardiogram, the mentalis surface electromyography and Lead II cardiography. The respiratory battery consisted of measurements of nasal /buccal air flow, pressure transducer measurements from the nose, thoracic and /or abdominal effort and intercostal surface electromyography. Video monitoring has been done to check for any parasomnia events. Nocturnal oxyhemoglobin saturations were obtained by finger oximetry. Step-gonzalez titration with positive airway pressure was utilized to control respiratory events. Raw data of sleep recording has been reviewed and is adequate. RESULTS: Sleep efficiency was slightly decreased to 85.0%. Latency to sleep onset was normal at 12.5 minutes.]. Sleep architecture showed stage N1 was normal 8.7%, Delta sleep was normal 17.7%, REM sleep was normal 22.4%. Heart rate was minimum 72 BPM, maximum 84 BPM, average 76 BPM. EMG showed 12.5 periodic limb movements per hour with 1.8 micriarousals per hour. PAP titration have been done with CPAP up to the pressure 8 cm H2O. The best results were at the pressure 7 cm H2O. Apnea hypopnea index reduced to 0. IMPRESSION: 1. Obstructive sleep apnea hypopnea syndrome on controle with PAP treatment. 2. Very mild periodic limb movements have been documented. Please see other impressions from consultation. PLAN: 1. The patient will have treatment with positive air pressure equipment with the level of pressure Auto 5-8 cm H2O and should use it every night for the whole night. 2. Watching and losing weight. 3. Sleep hygiene with regular time in bed for at least 8 hours. 4. No driving if feeling any sleepiness. 5. I will see the patient for follow up visit to explain the results of the test, recommendations, check compliance with treatment and make any necessary adjustment related to mask fitting, pressure and humidification. 6. Please check iron profile including ferritin level. Low level of iron may increase risk for periodic limb movements Thank you very much for allowing me to participate in the management of your patient. Sincerely, Barry Hoff MD, PhD, FAASM Diplomat of [place] [employer] Sleep Medicine Board of [place] [employer] Assistant of [facility] [place]
== END 2023-07-17 05:50 | disposition home or self-care (01) ==
LOC: 3 N SLEEP 19:39
PROVIDERS: ATTEND Internal Medicine
DX: G47.33 Obstructive sleep apnea (adult) (pediatric) (principal); G47.61 Periodic limb movement disorder; Z88.8 Allergy status to other drugs, medicaments and biological substances
CPT/HCPCS: 95811

== ENCOUNTER → 2023-10-09 | Outpatient (CLI) | payer BC ==
[2023-10-09 15:36] VITALS: BP 135/84; PULSE 95; RESP 18; TEMP 98.2
--- NOTE | 2023-10-09 16:10 | P.PROGSL ---
Subjective DATE: 10/09/2023 FOLLOW UP VISIT. Patient with obstructive sleep apnea hypopnea syndrome return to sleep center for follow-up visit. Recently patient had sleep study which documented obstructive sleep apnea hypopnea syndrome. Patient was initiated on PAP therapy and today is first visit after treatment was started. Patient was able to use PAP equipment every night for the whole night. The patient does not have significant problems with the mask, PAP pressure and humidification. [place] sleepiness scale is 6, which is normal. I checked information from PAP unit. PAP unit pressure 5-8, average 8 cm H2O. Usage is 93% and 80% for more then 4 hours, average 5 hours per night. Leak is 3.9 l/m, which is in great range. Apnea Hypopnea Index is 0.6, which is perfect. MEDICATIONS: Have been reviewed, please see below. During physical exam: GENERAL: A pleasant patient without any distress. VITAL SIGNS: Please see below, weight 302.4 pounds. HEENT: PERRLA, EOMI.low position of soft palate, Mallapati 4 . NECK: Supple. No JVD. LUNGS: Clear to percussion and to auscultation. Good air exchange. No wheezing or rhonchi. HEART: S1, S2 regular. ABDOMEN: Soft and nontender. Slightly obese EXTREMITIES: No clubbing or cyanosis. SAMPLE SEWER: Awake, alert, and oriented x3. No focal deficit. Impressions: 1. Obstructive sleep apnea-hypopnea syndrome. Patient demonstrated great compliance with treatment, benefiting from treatment. 2. Obesity, BMI around 53. 3. Hypertension. 4. Status post lap band surgery. 5. Status post cholecystectomy. 6. Status post . Plan: 1. Continue using PAP equipment every night for the whole night. 2. To change air filter at least 1-2 times per month. 3. PAP unit should stay lower then position of the head. 4. Advised patient to remove all remaining water from humidifier canister daily and make it dry after each usage. Refill canister with fresh distilled water before each usage. 5. Sleep hygiene with regular time in bed for at least 8 hours. 6. Precautions related to driving. No driving if feel any sleepiness. 7. I will maintain prescription for PAP supplies including mask, tube, filters. 8. Follow up visit in 6 months or earlier if patient has any problems. 9. Watching and losing weight. Thank you very much for allowing me to participate in the management of your pa elian. Barry Hoff MD, PhD, FAASM. Diplomat of [place] [employer], Sleep Medicine Board by [place] [employer] Deputy [facility] [employer] [facility] [place] cc: Magui Brown MD Objective - Vital Signs Vital Signs: Vital Signs Temp 98.2 F 10/09/23 15:36 Pulse 95 10/09/23 15:36 Resp 18 10/09/23 15:36 BP 135/84 10/09/23 15:36 Pulse Ox 96 10/09/23 15:36 FiO2 Intake & Output 10/08/23 10/09/23 10/09/23 18:59 06:59 18:59 Weight 137.098 kg Home Medications: Home Medications Medication Instructions Recorded Confirmed Type Losartan Potassium [Cozaar] 100 mg PO HS 08/29/16 08/29/16 History Multivitamins, Thera [Multivitamin 1 tab PO DAILY 08/29/16 08/29/16 History (formulary)] Hydrocodone/Acetaminophen [Tell 1 - 2 each PO Q6HR PRN #20 tab 08/31/16 Rx 5-325] Hyoscyamine Oral Drops [Levsin 0.25 mg PO Q4HR bottle 08/31/16 Rx Drops] Ondansetron Odt [Zofran ODT] 4 mg PO Q8HR PRN #10 tab 08/31/16 Rx Simethicone 40 mg/0.6 ml Drops 40 mg PO QID bottle 08/31/16 Rx [Mylicon Drops]
== END ==
LOC: 3 N SLEEP 15:08
PROVIDERS: ATTEND Internal Medicine
DX: G47.33 Obstructive sleep apnea (adult) (pediatric) (principal); E66.9 Obesity, unspecified; I10 Essential (primary) hypertension; Z98.890 Other specified postprocedural states; Z90.49 Acquired absence of other specified parts of digestive tract; Z98.84 Bariatric surgery status; Z99.89 Dependence on other enabling machines and devices; Z68.43 Body mass index [BMI] 50.0-59.9, adult; Z79.899 Other long term (current) drug therapy; Z88.8 Allergy status to other drugs, medicaments and biological substances
CPT/HCPCS: 99212

== ENCOUNTER → 2024-01-31 | Outpatient (CLI) | payer BC ==
--- NOTE | 2024-02-03 17:46 | MM ---
Reason for Exam: Screening (asymptomatic). Last mammogram was performed 2 year(s) and 9 month(s) ago. Patient History: Menarche at age 10. First Full-Term at age 26. Patient has history of breast feeding. Hormonal Contraceptives, from age 15 until age 28. Last menstrual period: 05/22/2023 Risk Values: Montse 5 year model risk: 1.1%. NCI Lifetime model risk: 9.9%. Prior Study Comparison: 04/24/2021 Bilateral Screening Mammogram, [facility]. 04/25/2021 Right Diagnostic Mammogram, [facility]. 11/06/2021 Right MG diagnostic mammo RT w CAD, [facility]. Tissue Density: There are scattered areas of fibroglandular density. Findings: Analyzed By CAD. Chronic nodularity on the left. There is no suspicious group of microcalcifications or new suspicious mass in either breast. Overall Assessment: Benign, BI-RAD 2 Management: Screening Mammogram of both breasts in 1 year. . Patient should continue monthly self-breast exams. A clinical breast exam by your physician is recommended on an annual basis. This exam should not preclude additional follow-up of suspicious palpable abnormalities. Note on Montse scores and lifetime risk: 1. A Montse score greater than 3% is considered moderate risk. If this is the case, consider specialist referral to assess eligibility for a risk reducing agent. 2. If overall lifetime risk for the development of breast cancer is 20% or higher, the patient may qualify for future screening with alternating mammogram and breast MRI. [facility], , 02/03/2024 5:44 PM. Electronically signed and approved by: Julia Trevino M.D. Radiologist
== END | disposition home or self-care (01) ==
LOC: RADMAMWWP 10:46
PROVIDERS: ATTEND Family Medicine
DX: Z12.31 Encounter for screening mammogram for malignant neoplasm of breast (principal); R92.323 Mammographic fibroglandular density, bilateral breasts
CPT/HCPCS: 77063; 77067